=== PATIENT | female | born 1965 | race American Indian/Alaskan Native ===

== ENCOUNTER 2017-01-01 12:18 | Emergency (ER) | payer OTHER, BC ==
[2017-01-01 12:51] VITALS: BP 112/66
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
== END 2017-01-01 17:33 | disposition home or self-care (01) ==
LOC: ED 12:18
DX: M54.5 Low back pain (principal); I10 Essential (primary) hypertension; V49.49XA Driver injured in collision with other motor vehicles in traffic accident, initial encounter; Y93.89 Activity, other specified; Y99.8 Other external cause status; Y92.488 Other paved roadways as the place of occurrence of the external cause
CPT/HCPCS: 72040; 72100; 99283